=== PATIENT | male | born 1950 | race Caucasian/White ===

== ENCOUNTER 2016-10-17 12:06 | Emergency (ER) | payer MEDICARE, OTHER ==
[2016-10-17 12:08] VITALS: BP 143/91; PULSE 92; RESP 20; TEMP 98.1; O2SAT 96
--- NOTE | 2016-10-17 14:23 | PD ---
HPI Chief Complaint: Senior Portfolio Manager Problem Time Seen by Provider: 14:16 Travel History International Travel<30 days: No Contact w/Intl Traveler<30days: No Traveled to known affect area: No History of Present Illness HPI Patient is a 66-year-old male with a history of urethral stricture presenting for inability to self catheter. He states he's had a failed stent many years ago and has been self cathetering for over 20 years. He states that last time he was able to successfully catheterize himself was at 6 PM last evening. Since then he's had multiple failed attempts. For the last week and a half he is had increasing difficulty and has had multiple failed attempts but was always able to eventually placed the catheter. He reports increasing suprapubic discomfort since last evening. He states that during one attempt a small amount of blood clot. He states that for the last week and a half he has had intermittent very small amount, "a drop or 2 " of almond colored urethral discharge. He is sexually active but does not have concerns over STD. He denies back or flank pain. He denies fever, chills, nausea, vomiting, diarrhea or constipation. He states in April 2016 a similar situation happened and a urologist was bedside and was unable to pass multiple catheters and a suprapubic catheter had to be placed. He spoke to his urologist in [place] and was told to follow-up in 6 months which is in the next several weeks. [facility] Social History Tobacco Use: No Allergies-Medications (Allergen,Severity, Reaction): Coded Allergies: No Known Allergies (Unverified , 10/17/16) Review of Systems General / Constitutional: No: Fever, Chills Cardiovascular: No: Chest Pain or Discomfort Respiratory: No: Shortness of Breath Gastrointestinal: Positive: Abdominal Pain (suprapubic), No: Nausea, Vomiting , Diarrhea, Hematemesis, Constipation Genitourinary: Positive: Other (see the history of present illness) Physical Exam Narrative GENERAL: Well-developed and well-nourished adult male in no acute distress. SKIN: Warm and dry. Good turgor without tenting. HEAD: Normocephalic and atraumatic. EYES: PERRL bilaterally, 5mm. EOMI bilaterally. No injection or icterus present. No proptosis. Lids without edema or erythema. ENT: Buccal mucosa pink and moist. Oropharynx free of erythema, tonsillar hypertrophy, masses, swelling, asymmetry and exudates. Uvula midline and airway patent. NECK: Supple, no midline tenderness, crepitus or step-offs. Trachea midline, no JVD. No cervical or facial lymphadenopathy. CARDIOVASCULAR: Regular rate and rhythm without murmurs, rubs, clicks or gallops. Radial pulses 2+ bilaterally. No pedal edema. RESPIRATORY: Clear to auscultation bilaterally with symmetrical rise and fall, no distress or use of accessory muscles. GASTROINTESTINAL: Moderate suprapubic tenderness without rebound or guarding. No distention or discoloration. Normal bowel sounds all 4 quadrants. No masses or organomegaly present. : Circumcised penis. Urethral meatus patent. No discharge or bleeding. There are no penile lesions or edema. No pain with palpation of the length of the penis. Scrotum is unremarkable. No testicular masses or tenderness. MUSCULOSKELETAL: No gait disturbances. Patient freely moving all four extremities spontaneously. Extremities without clubbing, cyanosis, or edema. No obvious deformities. NEUROLOGIC: CN II-XII grossly intact. Awake and alert. Motor grossly within normal limits. Normal speech. PSYCHIATRIC: Appropriate mood and affect; insight and judgment normal. Data Data Last Documented VS Vital Signs Date Time Temp Pulse Resp B/P Pulse Ox O2 Delivery O2 Flow Rate FiO2 10/17/16 12:08 98.1 92 20 143/91 96 Room Air Orders Urinary Catheter Management RK.Q8H (10/17/16 14:15) Complete Blood Count With Diff (10/17/16 14:23) Comprehensive Metabolic Panel (10/17/16 14:23) Ua Includes Microscopic (10/17/16 14:23) Gc And Chlamydia Pcr (10/17/16 14:23) Abdomen, Kub Only (10/17/16 14:23) Labs Laboratory Tests Test 10/17/16 14:30 White Blood Count 7.6 TH/MM3 Red Blood Count 5.10 MIL/MM3 Hemoglobin 15.7 GM/DL Hematocrit 45.4 % Mean Corpuscular Volume 88.9 FL Mean Corpuscular Hemoglobin 30.7 PG Mean Corpuscular Hemoglobin 34.5 % Concent Red Cell Distribution Width 13.4 % Platelet Count 267 TH/MM3 Mean Platelet Volume 7.1 FL Neutrophils (%) (Auto) 65.1 % Lymphocytes (%) (Auto) 25.3 % Monocytes (%) (Auto) 8.3 % Eosinophils (%) (Auto) 0.8 % Basophils (%) (Auto) 0.5 % Neutrophils # (Auto) 4.9 TH/MM3 Lymphocytes # (Auto) 1.9 TH/MM3 Monocytes # (Auto) 0.6 TH/MM3 Eosinophils # (Auto) 0.1 TH/MM3 Basophils # (Auto) 0.0 TH/MM3 CBC Comment DIFF FINAL Differential Comment Sodium Level 140 MEQ/L Potassium Level 4.0 MEQ/L Chloride Level 106 MEQ/L Carbon Dioxide Level 26.4 MEQ/L Anion Gap 8 MEQ/L Blood Urea Nitrogen 14 MG/DL Creatinine 0.95 MG/DL Estimat Glomerular Filtration 79 ML/MIN Rate Random Glucose 141 MG/DL Calcium Level 9.2 MG/DL Total Bilirubin 0.6 MG/DL Aspartate Amino Transf 17 U/L (AST/SGOT) Alanine Aminotransferase 35 U/L (ALT/SGPT) Alkaline Phosphatase 71 U/L Total Protein 7.2 GM/DL Albumin 4.0 GM/DL MDM Medical Decision Making Medical Screen Exam Complete: Yes Emergency Medical Condition: Yes Differential Diagnosis Urethral stricture versus urinary obstruction versus STD Narrative Course Workup initiated in triage. Once a medical bed becomes available, patient will be transferred and care assumed by the next provider. Patient is a 66-year-old male with a history of chronic urethral strictures who self catheterizes at home presenting with increasing difficulty catheterizing as well as a minimal almond colored urethral discharge for 1.5 weeks. Since last evening at 6 PM he has not been able to Sense. Increasing bladder pain. He denies any back or flank pain and no testicular, GI or systemic symptoms. Nursing staff here tried to place Weinberg and were unsuccessful. Ordered CBC, CMP , UA, chlamydia and gonorrhea and KUB. Nursing staff to perform bladder scan. Patient was signed out Livan Jean PA-C for further care and disposition. Diagnosis Primary Impression: Urethral obstruction Condition: Stable Callum Cabrera III Oct 17, 2016 14:23
[2016-10-17 14:50] LABS: AUTOMATED NEUTROPHIL # 4.9 TH/MM3 (1.8-7.7); BASOPHIL % 0.5 % (0.0-2.0); EOSINOPHIL # 0.1 TH/MM3 (0-0.4); EOSINOPHIL % 0.8 % (0.0-4.0); HEMATOCRIT 45.4 % (39.0-51.0); HEMO FLAGS DIFF FINAL; LYMPH % 25.3 % (9.0-44.0); LYMPHOCYTE # 1.9 TH/MM3 (1.0-4.8); MEAN CELL VOLUME 88.9 FL (80.0-100.0); MEAN CORPUSCULAR HEMOGLOBIN 30.7 PG (27.0-34.0); MEAN CORPUSCULAR HGB CONC 34.5 % (32.0-36.0); MONO % 8.3 % (0.0-8.0); NEUT % 65.1 % (16.0-70.0); PLATELET COUNT 267 TH/MM3 (150-450); RED CELL DISTRIBUTION WIDTH 13.4 % (11.6-17.2); WHITE BLOOD COUNT 7.6 TH/MM3 (4.0-11.0)
[2016-10-17 15:04] LABS: ANION GAP 8 MEQ/L (5-15); AST (GOT) 17 U/L (15-37); BICARBONATE 26.4 MEQ/L (21.0-32.0); BLOOD UREA NITROGEN 14 MG/DL (7-18); CHLORIDE 106 MEQ/L (98-107); GLOMERULAR FILTRATION RATE 79 ML/MIN (>89); SODIUM (NA) 140 MEQ/L (136-145)
[2016-10-17 15:07] LABS: ALKALINE PHOSPHATASE 71 U/L (45-117); ALT (GPT) 35 U/L (12-78); TOTAL BILIRUBIN ADULT 0.6 MG/DL (0.2-1.0)
--- NOTE | 2016-10-17 15:33 | PD ---
Physical Exam Date Seen by Provider: Oct 17, 2016 Time Seen by Provider: 15:31 Narrative 66-year-old male seen in triage by Callum Cabrera PAC, with urinary retention. Patient has a history of urinary stricture for the past 20 years requiring self- catheterization. Patient has had urinary retention in the past requiring suprapubic catheter placement, patient states he was self cathetering regularly up until yesterday, but now is unable to pass is rigid self-catheter at this time since yesterday. He is having increasing lower abdominal cramping and discomfort. He denies fever, chills, or other symptoms. Please see Callum Cabrera' s note. Data Data Last Documented VS Vital Signs Date Time Temp Pulse Resp B/P Pulse Ox O2 Delivery O2 Flow Rate FiO2 10/17/16 12:08 98.1 92 20 143/91 96 Room Air Orders Urinary Catheter Management RK.Q8H (10/17/16 14:15) Complete Blood Count With Diff (10/17/16 14:23) Comprehensive Metabolic Panel (10/17/16 14:23) Ua Includes Microscopic (10/17/16 14:23) Gc And Chlamydia Pcr (10/17/16 14:23) Abdomen, Kub Only (10/17/16 14:23) Labs Laboratory Tests Test 10/17/16 14:30 White Blood Count 7.6 TH/MM3 Red Blood Count 5.10 MIL/MM3 Hemoglobin 15.7 GM/DL Hematocrit 45.4 % Mean Corpuscular Volume 88.9 FL Mean Corpuscular Hemoglobin 30.7 PG Mean Corpuscular Hemoglobin 34.5 % Concent Red Cell Distribution Width 13.4 % Platelet Count 267 TH/MM3 Mean Platelet Volume 7.1 FL Neutrophils (%) (Auto) 65.1 % Lymphocytes (%) (Auto) 25.3 % Monocytes (%) (Auto) 8.3 % Eosinophils (%) (Auto) 0.8 % Basophils (%) (Auto) 0.5 % Neutrophils # (Auto) 4.9 TH/MM3 Lymphocytes # (Auto) 1.9 TH/MM3 Monocytes # (Auto) 0.6 TH/MM3 Eosinophils # (Auto) 0.1 TH/MM3 Basophils # (Auto) 0.0 TH/MM3 CBC Comment DIFF FINAL Differential Comment Sodium Level 140 MEQ/L Potassium Level 4.0 MEQ/L Chloride Level 106 MEQ/L Carbon Dioxide Level 26.4 MEQ/L Anion Gap 8 MEQ/L Blood Urea Nitrogen 14 MG/DL Creatinine 0.95 MG/DL Estimat Glomerular Filtration 79 ML/MIN Rate Random Glucose 141 MG/DL Calcium Level 9.2 MG/DL Total Bilirubin 0.6 MG/DL Aspartate Amino Transf 17 U/L (AST/SGOT) Alanine Aminotransferase 35 U/L (ALT/SGPT) Alkaline Phosphatase 71 U/L Total Protein 7.2 GM/DL Albumin 4.0 GM/DL [facility] Medical Record Reviewed: Yes Supervised Visit with ANAMIKA: Yes Differential Diagnosis Urinary stricture. Urinary blockage. Urinary retention. Possible kidney stone. Narrative Course Patient is uncomfortable but medically stable at time of exam. Labs are unremarkable at this time. 1530 hrs. Call was placed to the urologist on-call to discuss the patient prior to any intervention. 1545 [address] call returned by Dr. Boswell who stated he would be down to see the patient. Urology cart is placed by the room. [address] Hess is in to see the patient. #14 Luxembourg[place] catheter is placed , with leg bag. Patient is given Levaquin 250 mg once now and will continue on that once daily for the next 7 days. Patient is discharged home with a Weinberg in place with leg bag. Patient is to follow with his urologist upon arrival back in [place]. Patient can return the emergency Department between now and then if necessary. Diagnosis Primary Impression: Urethral obstruction Referrals: Urologist Patient Instructions: Weinberg Catheter Placement and Care (ED), General Instructions Additional Instruction: #14 Luxembourg[place] catheter is placed, with leg bag. Patient is given Levaquin 250 mg once now and will continue on that once daily for the next 7 days. Patient is discharged home with a Weinberg in place with leg bag. Patient is to follow with his urologist upon arrival back in [place]. Patient can return the emergency Department between now and then if necessary. Med/Other Pt SpecificInfo: Prescription(s) given Scripts No Active Prescriptions or Reported Meds Disposition: 01 DISCHARGE HOME Condition: Stable Livan Jean Oct 17, 2016 15:33
--- NOTE | 2016-10-17 15:35 | RADRPT ---
EXAM DATE/TIME: 10/17/2016 15:11 [facility] COMPARISON: No previous studies available for comparison. INDICATIONS : Obstruction, unable to self catherize himself. MEDICAL HISTORY : stricture in urethra 20 years ago, pt has been self cathing himself., hx of bladder stone SURGICAL HISTORY : surgery for stricture, didn't work. ENCOUNTER: Initial ACUITY: 1 day PAIN SCORE: 0/10 LOCATION: Bilateral abdomen FINDINGS: Supine view of the abdomen was performed. The abdominal bowel gas pattern is normal. The calcificati ons in the pelvis likely vascular. Stent noted just below pubic bones. The osseous structures are unr emarkable. CONCLUSION: 1. No acute findings. Stent is noted just below pubic symphysis presumably in the proximal urethra. Ajay Nova MD on October 17, 2016 at 15:32 Board Certified Radiologist. This report was verified electronically.
[2016-10-17] MEDS ORDERED: LEVA250T PO (17:05)
--- NOTE | 2016-10-17 17:05 | PD.CONS ---
HPI Service Urology Consult Requested By Reason for Consult Urinary retention Primary Care Physician Non-Staff Diagnosis: History of Present Illness Case of a pleasant 66-year-old gentleman with a history of urethral stricture formation status post placement of a UroLume stent more than 10 years ago as well as neurogenic bladder dysfunction who has been performing self catheterizations for the past 20 years. Patient presents now with inability to self catheterize himself since late yesterday. He reports that this situation developed in the past and he ended up having a suprapubic catheter placed. He denies trauma to urethra although he was an avid cyclist for many years. He denies any problems with his prostate. He is under the care of a urologist in the [place] area. He is here vacationing and plans to return back [place] tomorrow. Review of Systems Constitutional: DENIES: Fever, Chills Endocrine: DENIES: Heat/cold intolerance Eyes: DENIES: Blurred vision Ears, nose, mouth, throat: DENIES: Tinnitus Respiratory: DENIES: Cough Cardiovascular: DENIES: Chest pain Gastrointestinal: DENIES: Abdominal pain Genitourinary: DENIES: Hematuria Musculoskeletal: DENIES: Muscle aches Integumentary: DENIES: Rash Except as stated in HPI: all other systems reviewed are Neg Past Family Social History Past Medical History Urethral stricture formation Past Surgical History Status post placement of a UroLume urethral stent greater than 10 years ago Status post placement of a suprapubic catheter in the past Reported Medications Refer to EMR Allergies: Coded Allergies: No Known Allergies (Unverified , 10/17/16) Active Ordered Medications Refer to EMR Family History Reviewed and noncontributory Social History Denies tobacco, alcohol or intravenous drug abuse Physical Exam Vital Signs Vital Signs Date Time Temp Pulse Resp B/P Pulse Ox O2 Delivery O2 Flow Rate FiO2 10/17/16 12:08 98.1 92 20 143/91 96 Room Air Physical Exam GENERAL: This is a well-nourished, well-developed patient, in no apparent distress. SKIN: No rashes, ecchymoses or lesions. Cool and dry. HEAD: Atraumatic. Normocephalic. No temporal or scalp tenderness. EYES: Pupils equal round and reactive. Extraocular motions intact. No scleral icterus. No injection or drainage. ENT: Nose without bleeding, purulent drainage or septal hematoma. Throat without erythema, tonsillar hypertrophy or exudate. Uvula midline. Airway patent. NECK: Trachea midline. No JVD or lymphadenopathy. Supple, nontender, no meningeal signs. CARDIOVASCULAR: Regular rate and rhythm without murmurs, gallops, or rubs. RESPIRATORY: Clear to auscultation. Breath sounds equal bilaterally. No wheezes , rales, or rhonchi. GASTROINTESTINAL: Abdomen soft, non-tender, nondistended. No hepato-splenomegaly , or palpable masses. No guarding. GENITOURINARY: MUSCULOSKELETAL: Extremities without clubbing, cyanosis, or edema. No joint tenderness, effusion, or edema noted. No calf tenderness. Negative Homans sign bilaterally. NEUROLOGICAL: Awake and alert. Cranial nerves II through XII intact. Motor and sensory grossly within normal limits. Five out of 5 muscle strength in all muscle groups. Normal speech. Laboratory Laboratory Tests Test 10/17/16 14:30 White Blood Count 7.6 Red Blood Count 5.10 Hemoglobin 15.7 Hematocrit 45.4 Mean Corpuscular Volume 88.9 Mean Corpuscular Hemoglobin 30.7 Mean Corpuscular Hemoglobin 34.5 Concent Red Cell Distribution Width 13.4 Platelet Count 267 Mean Platelet Volume 7.1 Neutrophils (%) (Auto) 65.1 Lymphocytes (%) (Auto) 25.3 Monocytes (%) (Auto) 8.3 Eosinophils (%) (Auto) 0.8 Basophils (%) (Auto) 0.5 Neutrophils # (Auto) 4.9 Lymphocytes # (Auto) 1.9 Monocytes # (Auto) 0.6 Eosinophils # (Auto) 0.1 Basophils # (Auto) 0.0 CBC Comment DIFF FINAL Differential Comment Sodium Level 140 Potassium Level 4.0 Chloride Level 106 Carbon Dioxide Level 26.4 Anion Gap 8 Blood Urea Nitrogen 14 Creatinine 0.95 Estimat Glomerular Filtration 79 Rate Random Glucose 141 Calcium Level 9.2 Total Bilirubin 0.6 Aspartate Amino Transf 17 (AST/SGOT) Alanine Aminotransferase 35 (ALT/SGPT) Alkaline Phosphatase 71 Total Protein 7.2 Albumin 4.0 Result Diagram: 10/17/16 1430 10/17/16 1430 Imaging KUB study demonstrated UroLume urethral stent in bulbar urethra Course Urethra was gently dilated utilizing male sounds starting with 12 Prydeinig and sequentially dilating to 16 Prydeinig. A 14 Prydeinig coud Weinberg was then placed and connected to gravity drainage with evacuation of tova urine. Assessment and Plan Assessment and Plan Urologic impression: #1 Probable creation of a false passage during self catheterizations that precluded full advancement of a straight catheter. #2 Urinary retention related to neurogenic bladder dysfunction #3 urethra gently dilated utilizing male sounds and a 14 Prydeinig coud catheter placed and connected to gravity drainage. Plan: #1 maintain Weinberg to gravity drainage #2 give patient a leg bag and large Weinberg drainage bag for overnight use #3 short course of antibiotic therapy with Levaquin #4 patient to follow up with his established urologist in the [place] area for ongoing care. Mateusz Boswell MD Oct 17, 2016 17:04
[2016-10-17] MEDS ORDERED: LEVOFLOXACIN 250 MG TAB PO ONE (17:15)
[2016-10-17 17:34] VITALS: BP 130/78; PULSE 78; RESP 17; O2SAT 98
[2016-10-17 17:56] LABS: BACTERIA, URINE MANY /hpf; BLOOD, URINE SMALL (NEG); GLUCOSE,URINE 1000 mg/dL (NEG); KETONE, URINE TRACE mg/dL (NEG); MUCUS URINE MANY /lpf (OCC); PH, URINE 5.5 (5.0-8.5); URINE COLOR YELLOW (YELLW/STRAW)
[2016-10-17 17:57] LABS: NITRITE,URINE POS (NEG)
[2016-10-17 20:39] LABS: CHLAMYDIA PCR NOT DETECTED (NOT DETECT); NEISSERIA PCR NOT DETECTED (NOT DETECT)
== END 2016-10-17 17:34 | disposition home or self-care (01) ==
LOC: NEPE 12:06
DX: N36.8 Other specified disorders of urethra (principal); R33.9 Retention of urine, unspecified
CPT/HCPCS: 51702; 74000; 80053; 81001; 85025; 87491; 87591